=== PATIENT | female | born 1985 | race Two or more races ===

== ENCOUNTER 2017-06-09 10:47 | Emergency (ER) | payer OTHER ==
[2017-06-09 12:03] LABS: T.VAGINALIS (WET MOUNT) NO TRICHOMONAS SEEN; YEAST (WET MOUNT) NO YEAST SEEN
[2017-06-09 12:04] LABS: BACTERIA (WET MOUNT) 3+ BACTERIA SEEN; EPITHELIALS (WET MOUNT) 3+ EPITHELIALS SEEN; WBCS (WET MOUNT) NO WBCS SEEN
[2017-06-09 12:08] LABS: AMORPHOUS SEDIMENT,URINE TRACE /HPF; APPEARANCE,URINE CLOUDY; BILIRUBIN,URINE NEGATIVE (NEGATIVE); COLOR,URINE YELLOW; GLUCOSE, URINE NEGATIVE (NEGATIVE); KETONES,URINE NEGATIVE (NEGATIVE); LEUKOCYTE ESTERASE,URINE NEGATIVE (NEGATIVE); NITRITE,URINE NEGATIVE (NEGATIVE); PROTEIN,URINE NEGATIVE (NEGATIVE); URINE SPECIFIC GRAVITY 1.026
--- NOTE | 2017-06-09 12:40 | ER Document Report ---
HPI - HPI Patient complains to provider of: Urinary tract infection Onset: Other - Few days Onset/Duration: Gradual Pain Level: 3 Context: 31-year-old female with dysuria frequency and urgency for several days. She also thinks she might of bacterial vaginosis. No new sexual partner. Pelvic pain or flank pain. No fever or chills. No nausea vomiting or diarrhea. Associated Symptoms: None Exacerbated by: Denies Relieved by: Denies - ROS ROS below otherwise negative: Yes Systems Reviewed and Negative: Yes All other systems reviewed and negative - CONSTITUTIONAL Constitutional: DENIES: Fever, Chills - REPRODUCTIVE Reproductive: REPORTS: Abnormal bleeding / discharge - possible BV per pt. DENIES: : Past Medical History - General Information source: Patient - Social History Smoking Status: Never Smoker Chew tobacco use (# tins/day): No Frequency of alcohol use: Occasional Drug Abuse: None Lives with: Family Family History: Reviewed & Not Pertinent Patient has suicidal ideation: No Patient has homicidal ideation: No Renal/ Medical History: Reports: Other - UTI and bacterial vaginosis. Denies : Hx Peritoneal Dialysis Past Surgical History: Reports: Hx Dilation and Curettage, Hx Gynecologic Surgery - D&C 2010, Hx Oral Surgery - Immunizations Immunizations up to date: No Hx Diphtheria, Pertussis, Tetanus Vaccination: No Vertical Provider Document - CONSTITUTIONAL Agree With Documented VS: Yes Exam Limitations: No Limitations - INFECTION CONTROL TRAVEL OUTSIDE OF THE [place] IN LAST 30 DAYS: No - HEENT HEENT: Normocephalic - NECK Neck: Supple - RESPIRATORY Respiratory: Breath Sounds Normal, No Respiratory Distress O2 Sat by Pulse Oximetry: 96 - CARDIOVASCULAR Cardiovascular: Regular Rate, Regular Rhythm - GI/ABDOMEN Gastrointestinal: Abdomen Soft, Abdomen Non-Tender - MUSCULOSKELETAL/EXTREMETIES Musculoskeletal/Extremeties: MAEW - NEURO Level of Consciousness: Awake, Alert, Appropriate - DERM Integumentary: Warm, Dry Course - Re-evaluation Re-evalutation: 06/09/17 19:48 3+ bacteria 3+ epithelial cells which looks like to vaginosis, UA was sent for culture and I treated because of the symptoms but the UA does not look like a UTI. - Vital Signs Vital signs: Temp Pulse Resp BP Pulse Ox 98.8 F 81 14 113/60 96 06/09/17 10:57 06/09/17 10:57 06/09/17 10:57 06/09/17 10:57 06/09/17 10:57 - Laboratory Laboratory results interpreted by me: 06/09/17 11:42 Urine Urobilinogen 2.0 H Discharge - Discharge Clinical Impression: Bacterial vaginosis, Dysuria Condition: Good Disposition: HOME, SELF-CARE Instructions: Metronidazole ([facility]), Nitrofurantoin ([facility]), Urinary Tract Infection ([facility]), Vaginosis, Bacterial ([facility]) Additional Instructions: plenty of fluids to er if worse urine culture is pending no alcohol with the flagyl Prescriptions: Metronidazole [Flagyl 500 mg Tablet] 500 mg PO BID #14 tablet Nitrofurantoin/Nitrofuran Mac [Macrobid 100 mg Capsule] 100 mg PO BID #14 capsule Forms: Return to Work
[2017-06-09 12:47] VITALS: BP 120/70
== END 2017-06-09 13:02 | disposition home or self-care (01) ==
LOC: ER 10:47
DX: N76.0 Acute vaginitis (principal); B96.89 Other specified bacterial agents as the cause of diseases classified elsewhere; R30.0 Dysuria; R35.0 Frequency of micturition; R39.15 Urgency of urination; Z87.440 Personal history of urinary (tract) infections
CPT/HCPCS: 81001; 87086; 87210; 99283

== ENCOUNTER 2017-11-21 09:11 | Emergency (ER) | payer SELFPAY ==
--- NOTE | 2017-11-21 09:58 | ER Document Report ---
ED Medical Screen (RME) - General Chief Complaint: Vag Bleeding, +preg <12wks Stated Complaint: VAGINAL BLEEDING Time Seen by Provider: 11/21/17 09:49 Mode of Arrival: Ambulatory Information source: Patient Notes: This is a 31-year-old female 4 para 2 history of one miscarriage in the past, blood type a positive, approximately 8 weeks with reported twin pregnancies via ultrasound ([facility]). Patient states that she has been having some vaginal spotting for a few days with some cramping. She states that this morning at approximately 8 AM she had a heavy gush of blood. The bleeding has since stopped. She denies any significant pain. She denies any near-syncope. TRAVEL OUTSIDE OF THE [place] IN LAST 30 DAYS: No - Related Data Allergies/Adverse Reactions: No Known Allergies Allergy (Verified 11/21/17 09:19) Past Medical History Renal/ Medical History: Denies: Hx Peritoneal Dialysis Past Surgical History: Reports: Hx Dilation and Curettage, Hx Gynecologic Surgery - D&C 2010, Hx Oral Surgery - Immunizations Immunizations up to date: No Hx Diphtheria, Pertussis, Tetanus Vaccination: No Physical Exam - Vital signs Vitals: Temp Pulse Resp BP Pulse Ox 98.9 F 89 12 125/71 99 11/21/17 09:21 11/21/17 09:21 11/21/17 09:21 11/21/17 09:21 11/21/17 09:21 Course - Vital Signs Vital signs: Temp Pulse Resp BP Pulse Ox 98.9 F 89 12 125/71 99 11/21/17 09:21 11/21/17 09:21 11/21/17 09:21 11/21/17 09:21 11/21/17 09:21
[2017-11-21 10:39] LABS: ABSOLUTE EOSINOPHILS # (AUTO) 0.1 10^3/uL (0.0-0.6); ABSOLUTE LYMPHOCYTES (AUTO) 1.7 10^3/uL (0.5-4.7); ABSOLUTE MONOCYTES (AUTO) 0.4 10^3/uL (0.1-1.4); ABSOLUTE NEUT (AUTO) 2.9 10^3/uL (1.7-8.2); BASOPHILS % (AUTO) 0.5 % (0-2); EOSINOPHILS % (AUTO) 2.2 % (0-6); HEMATOCRIT 39.9 % (36.0-47.0); HEMOGLOBIN 13.6 g/dL (12.0-15.5); LYMPHOCYTES % (AUTO) 32.9 % (13-45); MEAN CORPUSCULAR HEMOGLOBIN 32.3 pg (27.0-33.4); MEAN CORPUSCULAR VOLUME 95 fl (80-97); MONOCYTES % (AUTO) 7.2 % (3-13); PLATELET COUNT 138 10^3/uL (150-450); RED BLOOD COUNT 4.21 10^6/uL (3.72-5.28); RED CELL DISTRIBUTION WIDTH 12.7 % (11.5-14.0); SEGMENTED NEUTROPHILS % (AUTO) 57.2 % (42-78); TOTAL CELLS COUNTED % (AUTO) 100 %; WHITE BLOOD COUNT 5.1 10^3/uL (4.0-10.5)
[2017-11-21 10:54] LABS: APPEARANCE,URINE CLEAR; BILIRUBIN,URINE NEGATIVE (NEGATIVE); COLOR,URINE YELLOW; GLUCOSE, URINE NEGATIVE (NEGATIVE); KETONES,URINE NEGATIVE (NEGATIVE); LEUKOCYTE ESTERASE,URINE NEGATIVE (NEGATIVE); NITRITE,URINE NEGATIVE (NEGATIVE); PROTEIN,URINE NEGATIVE (NEGATIVE); URINE SPECIFIC GRAVITY 1.028
--- NOTE | 2017-11-21 11:26 | RADIOLOGY REPORT (SQ) ---
EXAM DESCRIPTION: U/S OB TRANSVAGINAL W/O DOP COMPLETED DATE/TIME: 11/21/2017 10:55 am REASON FOR STUDY: approx 8 wekks/twins: vag bleed COMPARISON: 07/27/2000 TECHNIQUE: Transvaginal static and realtime grayscale images acquired of the pelvis. Additional nikki cted spectral and color Doppler images recorded. All images stored on PACs. bHCG: Not available. LIMITATIONS: None. FINDINGS: FETUS: Living intrauterine . ULTRASOUND EGA: 6 weeks 5 days ULTRASOUND KATT: 07/13/2007 CRL: 0.8 cm FHR: 108 beats per minute. SUBCHORIONIC BLEED: No SIZE OF BLEED: Not applicable. GESTATIONAL SAC: Gestational sac has an abnormal, teardrop-like configuration with less amniotic flu id than what is expected, subjectively. YOLK SAC: 8 mm. UTERUS: No masses. No anomalies. Measures 8.6 x 5.8 x 6.3 cm CERVICAL LENGTH: 3.0 cm Closed. RIGHT ADNEXA: Ovary not identified. LEFT ADNEXA: Ovary not identified. FREE FLUID: None. OTHER: No other significant finding. IMPRESSION: LIVING INTRAUTERINE . Abnormal shape of the gestational sac with a slightly en larged yolk sac and subjectively decreased amount of amniotic fluid than what is expected. Findings are concerning for demise. Recommend correlation with serial beta hCGs and short-term sonogra phic follow-up. EGA 6 weeks 5 days Trimester of : First - 0 to 13 weeks. TECHNICAL DOCUMENTATION: JOB ID: [id number] [employer]- All Rights Reserved Reading location - IP/workstation name: [email or web address]
--- NOTE | 2017-11-21 12:15 | ER Document Report ---
ED General - General Chief Complaint: Vag Bleeding, +preg <12wks Stated Complaint: VAGINAL BLEEDING Time Seen by Provider: 11/21/17 09:49 Mode of Arrival: Ambulatory TRAVEL OUTSIDE OF THE [place] IN LAST 30 DAYS: No - HPI Patient complains to provider of: Vaginal bleeding positive . Notes: Patient coming in with vaginal bleeding. Patient states that she has been evaluated by the center told she has twin states last ultrasound showed on the twins was treated irregularly more likely would be miscarried or as ordered by the other twin. Patient states having bright red blood out of her vagina today after having intercourse came to the ER for further evaluation. Patient otherwise is resting comfortably upon my evaluation. Denies any headaches denies any abdominal pain denies any dizziness. - Related Data Allergies/Adverse Reactions: No Known Allergies Allergy (Verified 11/21/17 09:19) Past Medical History - General Information source: Patient - Social History Smoking Status: Never Smoker Frequency of alcohol use: None Drug Abuse: None Family History: Reviewed & Not Pertinent Patient has suicidal ideation: No Patient has homicidal ideation: No Renal/ Medical History: Denies: Hx Peritoneal Dialysis Past Surgical History: Reports: Hx Dilation and Curettage, Hx Gynecologic Surgery - D&C 2010, Hx Oral Surgery - Immunizations Immunizations up to date: No Hx Diphtheria, Pertussis, Tetanus Vaccination: No Review of Systems - Review of Systems Constitutional: No symptoms reported EENT: No symptoms reported Cardiovascular: No symptoms reported Respiratory: No symptoms reported Gastrointestinal: No symptoms reported Genitourinary: No symptoms reported Female Genitourinary: Vaginal bleeding Musculoskeletal: No symptoms reported Skin: No symptoms reported Hematologic/Lymphatic: No symptoms reported Neurological/Psychological: No symptoms reported -: Yes All other systems reviewed and negative Physical Exam - Vital signs Vitals: Temp Pulse Resp BP Pulse Ox 98.9 F 89 12 125/71 99 11/21/17 09:21 11/21/17 09:21 11/21/17 09:21 11/21/17 09:21 11/21/17 09:21 Interpretation: Normal - General General appearance: Appears well, Alert - HEENT Head: Normocephalic, Atraumatic Eyes: Normal Pupils: PERRL - Respiratory Respiratory status: No respiratory distress Chest status: Nontender Breath sounds: Normal Chest palpation: Normal - Cardiovascular Rhythm: Regular Heart sounds: Normal auscultation Murmur: No - Abdominal Inspection: Normal Distension: No distension Bowel sounds: Normal Tenderness: Nontender Organomegaly: No organomegaly - Back Back: Normal, Nontender - Extremities General upper extremity: Normal inspection, Nontender, Normal color, Normal ROM , Normal temperature General lower extremity: Normal inspection, Nontender, Normal color, Normal ROM , Normal temperature, Normal weight bearing. No: Evin's sign - Neurological Neuro grossly intact: Yes Cognition: Normal Orientation: AAOx4 [place] Coma Scale Eye Opening: Spontaneous Madi Coma Scale Verbal: Oriented [place] Coma Scale Motor: Obeys Commands [place] Coma Scale Total: 15 Speech: Normal Motor strength normal: LUE, RUE, LLE, RLE Sensory: Normal - Psychological Associated symptoms: Normal affect, Normal mood - Skin Skin Temperature: Warm Skin Moisture: Dry Skin Color: Normal Course - Re-evaluation Re-evalutation: 11/21/17 15:35 Patient coming in for vaginal bleeding. Ultrasound shows 1 IUP with a misshapened gestational sac concerning for possible early demise. They relayed this to the patient that more likely she miscarried 1 of the twins and that there is a good chance that she may miscarry the second 1 I did contact OB/ COMMUNITY DEVELOPMENT SPECIALIST telephone answerer Dr. Damon who recommended follow-up in the clinic in approximately 1 weeks. Patient is to return to the ER if any symptoms worsen. Patient will be discharged home. - Vital Signs Vital signs: Temp Pulse Resp BP Pulse Ox 98.6 F 72 16 116/43 L 99 11/21/17 12:24 11/21/17 12:24 11/21/17 12:24 11/21/17 12:24 11/21/17 12:24 - Laboratory Result Diagrams: 11/21/17 10:10 Laboratory results interpreted by me: 11/21/17 11/21/17 11/21/17 10:10 10:10 10:10 Plt Count 138 L Beta HCG, Quant 01984.00 H Urine Blood MODERATE H Urine Urobilinogen 2.0 H Discharge - Discharge Clinical Impression: Threatened miscarriage in early Condition: Good Disposition: HOME, SELF-CARE Instructions: Threatened Miscarriage ([facility]) Additional Instructions: Your ultrasound today only shows 1 fetus within the uterus. More likely you have miscarried 1 of the twins. The yolk sac today other remaining fetus does look slightly abnormal which came in that she may end up miscarrying this fetus as well. I discussed her case with the [facility] on-call would recommend at this time pelvic rest nothing inside the vagina under section of choice to tampons. Continue with your vitamins. Follow-up with the [facility] clinic call them on Thursday to schedule follow-up appointment. Return to the ER for any concerning symptoms. Forms: Restricted Release Referrals: DEMARCUS HOWARD MD [ACTIVE STAFF] - Follow up as needed
[2017-11-21 12:26] VITALS: BP 116/43
== END 2017-11-21 12:26 | disposition home or self-care (01) ==
LOC: ER 09:11
DX: O20.0 Threatened abortion (principal); Z3A.00 Weeks of gestation of pregnancy not specified
CPT/HCPCS: 36415; 76817; 81001; 84702; 85025; 99284

== ENCOUNTER 2017-11-24 13:48 | Emergency (ER) | payer SELFPAY ==
--- NOTE | 2017-11-24 14:53 | ER Document Report ---
ED General - General Chief Complaint: Vaginal Bleeding Stated Complaint: VAGINAL BLEEDING Time Seen by Provider: 11/24/17 14:39 Mode of Arrival: Ambulatory Information source: Patient Notes: Patient presents emergency department with possible miscarriage. . Patient reports she was evaluated here in the emergency department approximately 3 days ago on Thursday. She reports she had a transvaginal ultrasound. She reports she was told that she had twins but the second twin barely had a heartbeat and she was probably having a miscarriage. She did have a follow up visit with the health department but no testing was completed. She reports she has had brown discharge for a few couple weeks. This morning she had dark black discharge. Afterwards she had a little spotting but it is tapering off very little. She reports she has not had to wear a liner but she probably should have. She denies fever vomiting diarrhea. She reports she feels like it is cramping but declines pain medication. TRAVEL OUTSIDE OF THE [place] IN LAST 30 DAYS: No - HPI Onset: Other Onset/Duration: Persistent Quality of pain: Cramping Pain Level: 3 Associated symptoms: None Exacerbated by: Denies Relieved by: Denies Similar symptoms previously: Yes Recently seen / treated by doctor: Yes - Related Data Allergies/Adverse Reactions: No Known Allergies Allergy (Verified 11/24/17 15:17) Past Medical History - General Information source: Patient Last Menstrual Period: september. ~6.5 weeks - Social History Smoking Status: Never Smoker Chew tobacco use (# tins/day): No Frequency of alcohol use: None Drug Abuse: None Lives with: Family Family History: Reviewed & Not Pertinent Patient has suicidal ideation: No Patient has homicidal ideation: No - Medical History Medical History: Negative Renal/ Medical History: Denies: Hx Peritoneal Dialysis Past Surgical History: Reports: Hx Dilation and Curettage, Hx Gynecologic Surgery - D&C 2010, Hx Oral Surgery - Immunizations Immunizations up to date: No Hx Diphtheria, Pertussis, Tetanus Vaccination: No Review of Systems - Review of Systems Notes: Review HPI for review of systems., All other systems negative Physical Exam - Vital signs Vitals: Temp Pulse Resp BP Pulse Ox 98.8 F 84 14 127/64 H 100 11/24/17 13:56 11/24/17 13:56 11/24/17 13:56 11/24/17 13:56 11/24/17 13:56 - Notes Notes: PHYSICAL EXAMINATION: GENERAL: Well-appearing and in no acute distress HEAD: Atraumatic, normocephalic. EYES: extraocular movements intact, sclera anicteric, conjunctiva are normal. ENT: nares patent, Moist mucous membranes. NECK: Normal range of motion, supple without lymphadenopathy LUNGS: CTAB and equal. No wheezes rales or rhonchi. HEART: Regular rate and rhythm without murmurs ABDOMEN: Soft, no tenderness with palpation. No guarding, no rebound EXTREMITIES: Normal range of motion, No cyanosis. NEUROLOGICAL: Cranial nerves grossly intact. Normal sensory/motor exams. PSYCH: Normal mood, normal affect. SKIN: Warm, Dry, normal turgor, no rashes or lesions noted Course - Re-evaluation Re-evalutation: 11/24/17 14:53 Patient instructed on plan of care to include labs hCG and ultrasound. 11/24/17 18:58 BHCG increased from the 18th. TVUS showed intrauterine 6 weeks 6 days with a heart rate of 133. Patient was instructed on all results. Patient reports no further bleeding. She was Instructed follow-up hCG on and to contact myself for results. Patient was also instructed to return for any pain vaginal bleeding concerns. She verbalized understanding. Denies pain at this time. - Vital Signs Vital signs: Temp Pulse Resp BP Pulse Ox 98.5 F 80 16 125/60 100 11/24/17 18:35 11/24/17 18:35 11/24/17 18:35 11/24/17 18:35 11/24/17 18:35 - Laboratory Result Diagrams: 11/24/17 14:48 Laboratory results interpreted by me: 11/24/17 11/24/17 14:48 14:48 Plt Count 141 L Beta HCG, Quant 55679.00 H - Diagnostic Test Radiology reviewed: Reports reviewed - EXAM DESCRIPTION: U/S OB TRANSVAG W/ DOPPLER COMPLETED DATE/TIME: 11/24/2017 5:56 pm REASON FOR STUDY: vag bleeding+preg COMPARISON: None. TECHNIQUE: Transvaginal static and realtime grayscale images acquired of the pelvis. Additional selected spectral and color Doppler images recorded. All images stored on PACs. [id number] CLINICAL DATES: LMP 09/29/2017 8 weeks 0 days LIMITATIONS: None. FINDINGS: FETUS: Living intrauterine . ULTRASOUND EGA: 6 weeks 6 days ULTRASOUND KATT: 07/14/2018 CRL: 0.83 cm FHR: 133 beats per minute. SUBCHORIONIC BLEED: Yes SIZE OF BLEED: Small UTERUS: No masses or anomalies. CERVICAL LENGTH: 3.1 cm. Closed. RIGHT ADNEXA: Ovary not seen. No adnexal free fluid. No adnexal masses. LEFT ADNEXA: Ovary not seen. No adnexal free fluid. No adnexal masses. FREE FLUID: None. OTHER: No other significant finding. IMPRESSION: LIVING INTRAUTERINE . EGA 6 weeks 6 days Trimester of : First - 0 to 13 weeks. Discharge - Discharge Clinical Impression: Vaginal bleeding Qualifiers: Weeks of gestation: less than 8 weeks Qualified Code(s): Z3A.01 - Less than 8 weeks gestation of Condition: Stable Disposition: HOME, SELF-CARE Instructions: Bleeding During Early ([facility]), Ob-Digital Product Manager Doctors Additional Instructions: *You have been evaluated for Vaginal bleeding, *Your BHCG today was 96651. Follow up on for a repeat BHCG. Call Pat at [phone] for your results two hours after the test *Your ultrasound today showed a living intrauterine 6 weeks 6 days with a heart rate of 133 bpm. *Follow up with an RADIO MECHANIC or the health department within 1 week. *Return to ED for worsening condition, changes, needs, vaginal bleeding pain fever *Return to ED if not better in 24 hours Forms: Follow-Up Laboratory Testing
[2017-11-24 15:06] LABS: ABSOLUTE EOSINOPHILS # (AUTO) 0.1 10^3/uL (0.0-0.6); ABSOLUTE LYMPHOCYTES (AUTO) 1.7 10^3/uL (0.5-4.7); ABSOLUTE MONOCYTES (AUTO) 0.4 10^3/uL (0.1-1.4); ABSOLUTE NEUT (AUTO) 3.6 10^3/uL (1.7-8.2); BASOPHILS % (AUTO) 0.5 % (0-2); EOSINOPHILS % (AUTO) 1.6 % (0-6); HEMATOCRIT 39.7 % (36.0-47.0); HEMOGLOBIN 13.6 g/dL (12.0-15.5); LYMPHOCYTES % (AUTO) 29.7 % (13-45); MEAN CORPUSCULAR HEMOGLOBIN 32.8 pg (27.0-33.4); MEAN CORPUSCULAR HGB CONC 34.3 g/dL (32.0-36.0); MEAN CORPUSCULAR VOLUME 96 fl (80-97); MONOCYTES % (AUTO) 7.5 % (3-13); PLATELET COUNT 141 10^3/uL (150-450); RED BLOOD COUNT 4.15 10^6/uL (3.72-5.28); RED CELL DISTRIBUTION WIDTH 12.5 % (11.5-14.0); SEGMENTED NEUTROPHILS % (AUTO) 60.7 % (42-78); TOTAL CELLS COUNTED % (AUTO) 100 %; WHITE BLOOD COUNT 5.9 10^3/uL (4.0-10.5)
[2017-11-24] MEDS ORDERED: ACETAMINOPHEN 325 MG TABLET PO ONE (16:50)
--- NOTE | 2017-11-24 18:08 | RADIOLOGY REPORT (SQ) ---
EXAM DESCRIPTION: U/S OB TRANSVAG W/DOPPLER COMPLETED DATE/TIME: 11/24/2017 5:56 pm REASON FOR STUDY: vag bleeding+preg COMPARISON: None. TECHNIQUE: Transvaginal static and realtime grayscale images acquired of the pelvis. Additional nikki cted spectral and color Doppler images recorded. All images stored on PACs. [id number] CLINICAL DATES: LMP 09/29/2017 8 weeks 0 days LIMITATIONS: None. FINDINGS: FETUS: Living intrauterine . ULTRASOUND EGA: 6 weeks 6 days ULTRASOUND KATT: 07/14/2018 CRL: 0.83 cm FHR: 133 beats per minute. SUBCHORIONIC BLEED: Yes SIZE OF BLEED: Small UTERUS: No masses or anomalies. CERVICAL LENGTH: 3.1 cm. Closed. RIGHT ADNEXA: Ovary not seen. No adnexal free fluid. No adnexal masses. LEFT ADNEXA: Ovary not seen. No adnexal free fluid. No adnexal masses. FREE FLUID: None. OTHER: No other significant finding. IMPRESSION: LIVING INTRAUTERINE . EGA 6 weeks 6 days Trimester of : First - 0 to 13 weeks. TECHNICAL DOCUMENTATION: JOB ID: [id number] [employer]- All Rights Reserved rev Reading location - IP/workstation name: [email or web address]
[2017-11-24 18:36] VITALS: BP 125/60
== END 2017-11-24 18:36 | disposition home or self-care (01) ==
LOC: ER 13:48
DX: O46.91 Antepartum hemorrhage, unspecified, first trimester (principal); Z3A.00 Weeks of gestation of pregnancy not specified
CPT/HCPCS: 36415; 76817; 84702; 85025; 93976; 99284

== ENCOUNTER 2017-12-10 17:18 | Emergency (ER) | payer MEDICAID ==
[2017-12-10] MEDS ORDERED: OXYCODONE-ACETAMINOPHEN 5-325 MG TABLET PO ONE (17:45)
[2017-12-10] MEDS ORDERED: PROMETHAZINE HCL 25 MG TABLET PO ONE (17:45)
--- NOTE | 2017-12-10 17:50 | ER Document Report ---
ED Medical Screen (RME) - General Chief Complaint: Vag Bleeding, +preg <12wks Stated Complaint: VAGINAL BLEEDING/CRAMPING Time Seen by Provider: 12/10/17 17:45 Notes: Patient is here because she thinks she is having a miscarriage. Patient was with twins until here on November 21 and she aborted 1 of the twins. She has been stable since then until this morning when she awakened with cramping and then later seeing vaginal bleeding. She is approximately 10 weeks , this being her fourth . TRAVEL OUTSIDE OF THE [place] IN LAST 30 DAYS: No - Related Data Allergies/Adverse Reactions: No Known Allergies Allergy (Verified 12/10/17 17:23) Past Medical History - General Last Menstrual Period: 09/27/17 - Social History Frequency of alcohol use: None Drug Abuse: None Renal/ Medical History: Denies: Hx Peritoneal Dialysis Past Surgical History: Reports: Hx Dilation and Curettage, Hx Gynecologic Surgery - D&C 2010, Hx Oral Surgery - Immunizations Immunizations up to date: No Hx Diphtheria, Pertussis, Tetanus Vaccination: No Physical Exam - Vital signs Vitals: Temp Pulse Resp BP Pulse Ox 97.5 F 93 20 141/74 H 99 12/10/17 17:24 12/10/17 17:24 12/10/17 17:24 12/10/17 17:24 12/10/17 17:24 Course - Vital Signs Vital signs: Temp Pulse Resp BP Pulse Ox 97.5 F 93 20 141/74 H 99 12/10/17 17:24 12/10/17 17:24 12/10/17 17:24 12/10/17 17:24 12/10/17 17:24 Doctor's Discharge - Discharge Referrals: ENEDINA RUDOLPH, PRODUCT SUPPORT ANALYST [Primary Care Provider] - Follow up as needed
[2017-12-10 18:26] LABS: ABSOLUTE EOSINOPHILS # (AUTO) 0.1 10^3/uL (0.0-0.6); ABSOLUTE LYMPHOCYTES (AUTO) 1.9 10^3/uL (0.5-4.7); ABSOLUTE MONOCYTES (AUTO) 0.6 10^3/uL (0.1-1.4); BASOPHILS % (AUTO) 0.3 % (0-2); EOSINOPHILS % (AUTO) 1.6 % (0-6); HEMOGLOBIN 13.4 g/dL (12.0-15.5); LYMPHOCYTES % (AUTO) 22.1 % (13-45); MEAN CORPUSCULAR HEMOGLOBIN 32.8 pg (27.0-33.4); MEAN CORPUSCULAR HGB CONC 34.3 g/dL (32.0-36.0); MEAN CORPUSCULAR VOLUME 96 fl (80-97); MONOCYTES % (AUTO) 6.6 % (3-13); PLATELET COUNT 139 10^3/uL (150-450); RED BLOOD COUNT 4.08 10^6/uL (3.72-5.28); RED CELL DISTRIBUTION WIDTH 12.9 % (11.5-14.0); SEGMENTED NEUTROPHILS % (AUTO) 69.4 % (42-78); TOTAL CELLS COUNTED % (AUTO) 100 %; WHITE BLOOD COUNT 8.6 10^3/uL (4.0-10.5)
[2017-12-10 18:35] LABS: INTERNATIONAL RATION (INR) 0.91; PROTHROMBIN TIME 12.7 SEC (11.4-15.4)
[2017-12-10 18:36] LABS: PARTIAL THROMBOPLASTIN TIME 29.2 SEC (23.5-35.8)
--- NOTE | 2017-12-10 20:10 | ER Document Report ---
ED GI/ - General Chief Complaint: Vag Bleeding, +preg <12wks Stated Complaint: VAGINAL BLEEDING/CRAMPING Time Seen by Provider: 12/10/17 17:45 Notes: Patient is a 31-year-old female presenting to the emergency department complaining of vaginal bleeding and cramping. Patient states she was here on and 11/24/2017 for same. Patient states she was with twins at one-point, miscarried one twin on her previous visit and was to follow-up with the health department. Patient states she cannot get into the health department and has had a scant amount of bleeding since. Patient stated this afternoon she started passing tissue and the lower abdominal cramping increased so she presented to the emergency department. Last menstrual period September 27, 2017, A2. Patient denies smoking, EtOH use, illicit drug use. Past medical history of "I cannot clots." Patient states she takes no medications on a daily basis, has no known drug allergies, has had a D&C for previous miscarriage. TRAVEL OUTSIDE OF THE [place] IN LAST 30 DAYS: No - Related Data Allergies/Adverse Reactions: No Known Allergies Allergy (Verified 12/10/17 17:23) Past Medical History - General Information source: Patient Last Menstrual Period: 09/27/17 - Social History Smoking Status: Never Smoker Frequency of alcohol use: None Drug Abuse: None Lives with: Family Family History: Reviewed & Not Pertinent Patient has suicidal ideation: No Patient has homicidal ideation: No Renal/ Medical History: Denies: Hx Peritoneal Dialysis Past Surgical History: Reports: Hx Dilation and Curettage, Hx Gynecologic Surgery - D&C 2010, Hx Oral Surgery - Immunizations Immunizations up to date: No Hx Diphtheria, Pertussis, Tetanus Vaccination: No Review of Systems - Review of Systems Constitutional: No symptoms reported EENT: No symptoms reported Cardiovascular: No symptoms reported Respiratory: No symptoms reported Gastrointestinal: No symptoms reported, See HPI Genitourinary: No symptoms reported Female Genitourinary: See HPI Musculoskeletal: No symptoms reported Skin: No symptoms reported Hematologic/Lymphatic: See HPI Neurological/Psychological: No symptoms reported Physical Exam - Vital signs Vitals: Temp Pulse Resp BP Pulse Ox 97.5 F 93 20 141/74 H 99 12/10/17 17:24 12/10/17 17:24 12/10/17 17:24 12/10/17 17:24 12/10/17 17:24 - Notes Notes: GENERAL: Alert, interacts well. No acute distress. HEAD: Normocephalic, atraumatic. EYES: Pupils equal, round, and reactive to light. Extraocular movements intact. ENT: Oral mucosa moist, tongue midline. NECK: Full range of motion. Supple. Trachea midline. LUNGS: Clear to auscultation bilaterally, no wheezes, rales, or rhonchi. No respiratory distress. HEART: Regular rate and rhythm. No murmur ABDOMEN: Soft, mild discomfort suprapubic area. Non-distended. Bowel sounds present in all 4 quadrants. EXTREMITIES: Moves all 4 extremities spontaneously. No edema, normal radial and dorsalis pedis pulses bilaterally. No cyanosis. BACK: no cervical, thoracic, lumbar midline tenderness. No saddle anesthesia, normal distal neurovascular exam. NEUROLOGICAL: Alert and oriented x3. Normal speech. . PSYCH: Normal affect, normal mood. SKIN: Warm, dry, normal turgor. No rashes or lesions noted. Course - Re-evaluation Re-evalutation: Reviewed patient's lab results, ultrasound, hCG levels. Talked to the patient about doing a pelvic to look for POC, patient agrees. Bright red blood seen in the cul-de-sac, observed with gauze. No POC in os. Talked to patient about importance of following up with the health department, EVENT SERVICES MANAGER for repeat hCG levels. Return precautions given. - Vital Signs Vital signs: Temp Pulse Resp BP Pulse Ox 98.1 F 74 14 118/69 98 12/10/17 21:37 12/10/17 21:37 12/10/17 21:37 12/10/17 21:37 12/10/17 21:37 - Laboratory Result Diagrams: 12/10/17 18:04 Laboratory results interpreted by me: 12/10/17 12/10/17 18:04 18:04 Plt Count 139 L Beta HCG, Quant 5175.30 H Procedures - Pelvic Exam Pelvic exam Cultures obtained: No Wet prep obtained: No Herpes culture obtained: No POC sent to lab: No Foreign body removed: No Bimanual exam performed: No Discharge - Discharge Clinical Impression: Vaginal bleeding, Miscarriage Condition: Stable Disposition: HOME, SELF-CARE Additional Instructions: You have been seen in the emergency department for vaginal bleeding. According to the lab results and ultrasound it appears that you have had a miscarriage. As we talked about it is important that you follow-up with the health department or EVENT SERVICES MANAGER to get repeat hCG levels. Return to the emergency department should you have any lightheadedness, weakness, increased vaginal bleeding, shortness of breath, or pass out. Take medications as prescribed. Referrals: ENEDINA RUDOLPH APRN [NO LOCAL MD] - Follow up as needed ANASTACIA CARPIO MD [ACTIVE STAFF] - Follow up as needed
--- NOTE | 2017-12-10 20:21 | RADIOLOGY REPORT (SQ) ---
EXAM DESCRIPTION: U/S OB TRANSVAG W/DOPPLER COMPLETED DATE/TIME: 12/10/2017 8:06 pm REASON FOR STUDY: Previously preg with twins, aborted 1, now bleeding COMPARISON: 11/24/2017 TECHNIQUE: Transvaginal static and realtime grayscale images acquired of the pelvis. Additional nikki cted spectral and color Doppler images recorded. All images stored on PACs. bHCG: Not available CLINICAL DATES: LMP 09/29/2017. 10 weeks 2 days. LIMITATIONS: None. FINDINGS: No intrauterine gestation is seen. The uterus is unremarkable. Ovaries were not seen. IMPRESSION: No intrauterine gestation at this time. TECHNICAL DOCUMENTATION: JOB ID: [id number] [employer]- All Rights Reserved rev-08/21 Reading location - IP/workstation name: [email or web address]
[2017-12-10] MEDS ORDERED: ONDANSETRON ODT 4 MG TAB (6 TAB/ER DISP) PO PRN (21:24)
[2017-12-10] MEDS ORDERED: HYDROCODONE/ACETAMINOPHEN 5-325 MG (6 TAB/ER DISP) PO PRN (21:24)
[2017-12-10 23:10] VITALS: BP 118/69
== END 2017-12-10 21:45 | disposition home or self-care (01) ==
LOC: ER 17:18
DX: O03.9 Complete or unspecified spontaneous abortion without complication (principal)
CPT/HCPCS: 99284; 86900; 86901; 36415; 84702; 85025; 85610; 85730; 76817; 93976; J3490

== ENCOUNTER 2019-07-19 11:26 | Emergency (ER) | payer BC, MEDICAID ==
--- NOTE | 2019-07-19 11:28 | ER Document Report ---
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 She reports last night she became short of breath. Reports fever with nausea and vomiting. Patient also reports decreased sense of smell with decreased appetite. Patient also reports that she is possibly , she took a test and it was faintly positive. She reports she lives on the third floor and by the time she finished climbing steps she was really short of breath. Patient denies vomiting today. Declines antinausea medicine. Associated Symptoms: Fever, Nausea, Vomiting, Shortness of breath. 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 Lives with: Family Family History: Reviewed & Not Pertinent Patient has suicidal ideation: No Patient has homicidal ideation: No - Medical History Medical History: Negative Renal/ Medical History: Denies: Hx Peritoneal Dialysis Past Surgical History: Reports: Hx Dilation and Curettage, Hx Gynecologic S urgery - D&C 2010, Hx Oral Surgery - Immunizations Immunizations up to date: No Hx Diphtheria, Pertussis, Tetanus Vaccination: No Vertical Provider Document - CONSTITUTIONAL Agree With Documented VS: Yes Exam Limitations: No Limitations General Appearance: WD/WN, No Apparent Distress - nontoxic looking Notes: Full physical exam could not be performed due to Covidien 19 isolation protocols. Constitutional: nontoxic appearance, no acute distress Eyes: Nonicteric, extraocular movements intact, sclera clear Respiratory: Nonlabored breathing, no use of accessory muscles, no tachypnea, RR even/unlabored Cardiovascular: No JVD Gastrointestinal: Abdominal not distended Musculoskeletal: Moves all extremities well Skin: Normal color Neuro: Awake alert oriented normal speech Psych: Normal mood and affect - INFECTION CONTROL TRAVEL OUTSIDE OF THE [place] IN LAST 30 DAYS: No - HEENT HEENT: Atraumatic, Normocephalic. negative: Conjuctival Injection, Pharyngeal Exudate, Pharyngeal Erythema - NECK Neck: Supple - RESPIRATORY Respiratory: Breath Sounds Normal, No Respiratory Distress - No shortness of breath speaking in a clear voice respiratory rate even unlabored - NEURO Level of Consciousness: Awake, Alert, Appropriate - DERM Integumentary: Warm, Dry Course - Re-evaluation Re-evalutation: 07/19/19 12:09 Patient presents with upper respiratory symptoms worrisome for possible Covid 19 due. 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 Patient does not have emergency worriesome symptoms such as difficulty breathing, chest pain, pressure, confusion or cyanosis. Patient does complain of shortness of breath but is talking in a clear voice no shortness of breath at this time. Patient appears suitable for discharge as they are not of an advanced age, do not have any chronic medical conditions such as diabetes, CAD, immune deficiency, chronic lung disease or chronic kidney disease. Patient's vital signs are stable and patient is nontoxic in appearance. Good return precautions have been discussed with patient, patient verbalized understanding and is agreeable with discharge plan of care at this time. Strep flu and Covid testing will be done on this patient. She was instructed on self quarantine. 07/19/19 13:35 Laboratory 07/19/19 07/19/19 12:00 12:02 Influenza A (Rapid) NEGATIVE Influenza B (Rapid) NEGATIVE Group A Strep Rapid NEGATIVE Influenza and strep negative. Throat culture pending. COVID 19 testing pending. Patient notified via Maureen SHER. - Vital Signs Vital signs: 07/19/19 13:03 heart Rate 93, blood pressure 117/60, 98%, 97.3 Discharge - Discharge Clinical Impression: Exposure to COVID-19 virus, Shortness of breath Nausea & vomiting Qualifiers: Vomiting type: unspecified Vomiting Intractability: unspecified Qualified Code(s): R11.2 - Nausea with vomiting, unspecified Condition: Stable Disposition: HOME, SELF-CARE Instructions: Vomiting (OM) Additional Instructions: *You have been evaluated for fever, nausea and vomiting, shortness of breath, COVID exposure *A strep and influenza test are pending. You will be contacted today with those results. If the strep test is negative a throat culture will be pending. You may be contacted in 3 to 4 days with those results. If they are positive a prescription will be called into your pharmacy. * A COVID-19 test is also pending. You may be contacted within the next 10 days with those results. In the meantime you are required to self quarantine yourself. *Monitor your temperature, give Tylenol as indicated *Ensure you drink plenty of fluids to stay well hydrated *Maintain handwashing, social distancing *Follow up with your provider as indicated *Return to the emergency department for worsening conditions difficulty breathing concerns. As a person under investigation for Covid 19, the [facility] of Health and Human Services, division of public health advises you to adhere to the following guidance until your test results are reported to you. If your test result is positive, you will receive additional information from your provider and your local health department at that time. Remain at home until you are cleared by the health provider or public health authorities. Keep a log of visitors to your home, notify any visitors to your home of your isolation status. If you plan to move to a new address or leave the county, notify the local health department in your County. Call your doctor or seek care if you have an urgent medical need. Before seeking medical care, call ahead to get instructions from the provider before arriving at the medical office clinic or hospital. Notify them that you are being tested for the virus that causes Covid 19 so that arrangements can be made, as necessary, to prevent transmission to others in the healthcare setting. Next, notify the local health department in your county. If a medical emergency arises and you need to call 911, inform dispatch and the first responders that you are being tested for the virus that causes Covid 19. Next, notify the local health department in your county. Guidance for worsening S/SX: For worsening symptoms, patient has been advised to contact their Primary Care Provider, or go to the nearest Emergency Department. Referrals: HEALTH,EMPLOYEE [ACTIVE STAFF] - Follow up as needed
[2019-07-19 13:08] LABS: A TYPE INFLUENZA AG NEGATIVE (NEGATIVE); B INFLUENZA AG NEGATIVE (NEGATIVE)
== END 2019-07-19 15:49 | disposition home or self-care (01) ==
LOC: EDRDC 11:26
DX: R06.02 Shortness of breath (principal); R50.9 Fever, unspecified; R11.2 Nausea with vomiting, unspecified; Z20.828 Contact with and (suspected) exposure to other viral communicable diseases
CPT/HCPCS: 87070; 87635; 87804; 87880; 99211

== ENCOUNTER 2019-07-25 19:57 | Emergency (ER) | payer BC, MEDICAID ==
[2019-07-25] MEDS ORDERED: NORMAL SALINE 1000 ML 1,000 ML IV ONE (20:16)
--- NOTE | 2019-07-25 20:18 | ER Document Report ---
ED Medical Screen (RME) - General Chief Complaint: Urinary Problem Stated Complaint: SIDE PAINS AND NAUSEA 3 WKS PREG Time Seen by Provider: 07/25/19 20:15 Primary Care Provider: LANIE OWENS [Primary Care Provider] - Follow up as needed Notes: HPI: 33-year-old female who believes she is approximately 3 weeks presenting for nausea vomiting over the last 3 to 4 days with some right pelvic pain and vaginal discomfort. Reports discomfort with urination over the last 3 to 4 days as well. States she has seen some white flecks in the urine, denies vaginal discharge or bleeding. Patient is on fertility treatments and only found out that she was today. Last menstrual cycle was June 30. 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 She has no cough or shortness of breath. She has otherwise not been around other individuals since the COVID test was negative I have greeted and performed a rapid initial assessment of this patient. A comprehensive ED assessment and evaluation of the patient, analysis of test results and completion of the medical decision making process will be conducted by additional ED providers PHYSICAL EXAMINATION: There is mild tenderness in the right pelvis on palpation. No CVA tenderness. No upper abdominal pain on palpation I have greeted and performed a rapid initial assessment of this patient. A comprehensive ED assessment and evaluation of the patient, analysis of test results and completion of medical decision making process will be conducted by an additional ED providers. TRAVEL OUTSIDE OF THE [place] IN LAST 30 DAYS: No - Related Data Allergies/Adverse Reactions: No Known Allergies Allergy (Verified 12/10/17 17:23) Home Medications: Progesterone Past Medical History - Social History Frequency of alcohol use: None Drug Abuse: None Renal/ Medical History: Denies: Hx Peritoneal Dialysis Past Surgical History: Reports: Hx Dilation and Curettage, Hx Gynecologic Surgery - D&C 2010, Hx Oral Surgery - Immunizations Immunizations up to date: No Hx Diphtheria, Pertussis, Tetanus Vaccination: No Physical Exam - Vital signs Vitals: Temp Pulse Resp BP Pulse Ox 98.9 F 97 16 131/83 H 95 07/25/19 20:01 07/25/19 20:01 07/25/19 20:01 07/25/19 20:01 07/25/19 20:01 Course - Vital Signs Vital signs: Temp Pulse Resp BP Pulse Ox 98.9 F 97 16 131/83 H 95 07/25/19 20:01 07/25/19 20:01 07/25/19 20:01 07/25/19 20:01 07/25/19 20:01 Doctor's Discharge - Discharge Referrals: LOCALMD,NO [Primary Care Provider] - Follow up as needed
[2019-07-25 20:45] LABS: APPEARANCE,URINE SLIGHTLY-CLOUDY; BILIRUBIN,URINE NEGATIVE (NEGATIVE); COLOR,URINE YELLOW; GLUCOSE, URINE NEGATIVE (NEGATIVE); KETONES,URINE NEGATIVE (NEGATIVE); LEUKOCYTE ESTERASE,URINE NEGATIVE (NEGATIVE); NITRITE,URINE NEGATIVE (NEGATIVE); PROTEIN,URINE NEGATIVE (NEGATIVE); URINE SPECIFIC GRAVITY 1.018
[2019-07-25 20:46] LABS: ABSOLUTE LYMPHOCYTES (AUTO) 1.2 10^3/uL (0.5-4.7); ABSOLUTE MONOCYTES (AUTO) 0.5 10^3/uL (0.1-1.4); ABSOLUTE NEUT (AUTO) 1.7 10^3/uL (1.7-8.2); BASOPHILS % (AUTO) 0.7 % (0-2); EOSINOPHILS % (AUTO) 0.9 % (0-6); HEMATOCRIT 40.5 % (36.0-47.0); HEMOGLOBIN 14.3 g/dL (12.0-15.5); LYMPHOCYTES % (AUTO) 35.1 % (13-45); MEAN CORPUSCULAR HEMOGLOBIN 33.1 pg (27.0-33.4); MEAN CORPUSCULAR HGB CONC 35.2 g/dL (32.0-36.0); MEAN CORPUSCULAR VOLUME 94 fl (80-97); MONOCYTES % (AUTO) 15.1 % (3-13); RED CELL DISTRIBUTION WIDTH 12.7 % (11.5-14.0); SEGMENTED NEUTROPHILS % (AUTO) 48.2 % (42-78); TOTAL CELLS COUNTED % (AUTO) 100 %; WHITE BLOOD COUNT 3.5 10^3/uL (4.0-10.5)
[2019-07-25 20:57] LABS: ALBUMIN 4.7 g/dL (3.5-5.0); ALKALINE PHOSPHATASE 49 U/L (38-126); ANION GAP 7 (5-19); ASPARTATE AMINO TRANSFERASE 21 U/L (14-36); BILIRUBIN,TOTAL 0.3 mg/dL (0.2-1.3); BLOOD UREA NITROGEN 10 mg/dL (7-20); CALCIUM 9.6 mg/dL (8.4-10.2); CARBON DIOXIDE 29 mmol/L (22-30); CHLORIDE 101 mmol/L (98-107); GLUCOSE 106 mg/dL (75-110); POTASSIUM 4.1 mmol/L (3.6-5.0); TOTAL PROTEIN 8.1 g/dL (6.3-8.2)
[2019-07-25 21:13] LABS: PLATELET COUNT 96 10^3/uL (150-450)
--- NOTE | 2019-07-25 21:36 | ER Document Report ---
ED GI/ - General Chief Complaint: Urinary Problem Stated Complaint: SIDE PAINS AND NAUSEA 3 WKS PREG Time Seen by Provider: 07/25/19 20:15 Primary Care Provider: LANIE OWENS [Primary Care Provider] - Follow up as needed Notes: RADHA HPI: 33-year-old female who believes she is approximately 3 weeks presenting for nausea vomiting over the last 3 to 4 days with some right pelvic pain and vaginal discomfort. Reports discomfort with urination over the last 3 to 4 days as well. States she has seen some white flecks in the urine, denies vaginal discharge or bleeding. Patient is on fertility treatments and only found out that she was today. Last menstrual cycle was June 30. 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 She has no cough or shortness of breath. She has otherwise not been around other individuals since the COVID test was negative TRAVEL OUTSIDE OF THE [place] IN LAST 30 DAYS: No - Related Data Allergies/Adverse Reactions: No Known Allergies Allergy (Verified 12/10/17 17:23) Home Medications: Progesterone Past Medical History - General Information source: Patient - Social History Smoking Status: Never Smoker Frequency of alcohol use: None Drug Abuse: None Family History: Reviewed & Not Pertinent Patient has suicidal ideation: No Patient has homicidal ideation: No - Medical History Medical History: Negative Renal/ Medical History: Denies: Hx Peritoneal Dialysis Past Surgical History: Reports: Hx Dilation and Curettage, Hx Gynecologic Surgery - D&C 2010, Hx Oral Surgery - Immunizations Immunizations up to date: No Hx Diphtheria, Pertussis, Tetanus Vaccination: No Review of Systems - Review of Systems Gastrointestinal: See HPI Genitourinary: See HPI -: Yes All other systems reviewed and negative Physical Exam - Vital signs Vitals: Temp Pulse Resp BP Pulse Ox 98.9 F 97 16 131/83 H 95 07/25/19 20:01 07/25/19 20:01 07/25/19 20:01 07/25/19 20:01 07/25/19 20:01 - Notes Notes: PHYSICAL EXAMINATION: GENERAL: Well-appearing, well-nourished and in no acute distress. HEAD: Atraumatic, normocephalic. EYES: Pupils equal round and reactive to light, extraocular movements intact, conjunctiva are normal. ENT: Nares patent, oropharynx clear without exudates. Moist mucous membranes. NECK: Normal range of motion, supple without lymphadenopathy LUNGS: Breath sounds clear to auscultation bilaterally and equal. No wheezes rales or rhonchi. HEART: Regular rate and rhythm without murmurs ABDOMEN: Soft, nontender, nondistended abdomen. No guarding, no rebound. No masses appreciated. Female : deferred Musculoskeletal: Normal range of motion, no pitting or edema. No cyanosis. NEUROLOGICAL: Cranial nerves grossly intact. Normal speech, normal gait. Normal sensory, motor exams PSYCH: Normal mood, normal affect. SKIN: Warm, Dry, normal turgor, no rashes or lesions noted. Course - Re-evaluation Re-evalutation: Patient appears well, nontoxic. She reports her pain is gone. Serum hCG here today is negative. Transvaginal ultrasound also unremarkable. She did see her infertility specialist today and found out she was however it may be very early. She estimates 3 to 4 weeks . She will have close follow-up with her infertility specialist. - Vital Signs Vital signs: Temp Pulse Resp BP Pulse Ox 98.2 F 81 18 114/84 100 07/25/19 23:34 07/25/19 23:34 07/25/19 23:34 07/25/19 23:34 07/25/19 23:34 - Laboratory Result Diagrams: 07/25/19 20:25 07/25/19 20:25 Laboratory results interpreted by me: 07/25/19 07/25/19 07/25/19 20:25 20:25 20:25 WBC 3.5 L Plt Count 96 L [place] % (Auto) 15.1 H Sodium 136.7 L Urine Urobilinogen 4.0 H Discharge - Discharge Clinical Impression: Abdominal pain Qualifiers: Abdominal location: unspecified location Qualified Code(s): R10.9 - Unspecified abdominal pain Condition: Stable Disposition: HOME, SELF-CARE Additional Instructions: You have been seen in the Emergency Department (ED) for abdominal pain. Your evaluation did not identify a clear cause of your symptoms but was generally reassuring. Please follow up with your doctor as soon as possible regarding today's emergent visit and the symptoms that are bothering you. Return to the ED if your abdominal pain worsens or fails to improve, you develop bloody vomiting, bloody diarrhea, you are unable to tolerate fluids due to vomiting, fever greater than 101, or other symptoms that concern you. Follow-up with your infertility specialist, call them tomorrow. Referrals: LOCALMD,NO [Primary Care Provider] - Follow up as needed
--- NOTE | 2019-07-25 22:18 | RADIOLOGY REPORT (SQ) ---
EXAM DESCRIPTION: US PELVIS TRANSVAGINAL COMPLETED DATE/TME: 07/25/2019 20:59 CLINICAL HISTORY: 33 years, Female, RLQ pain, pt reports 3 weeks COMPARISON: Prior study from 12/10/2017 TECHNIQUE: Axial 2-D grayscale images of the pelvis were acquired. Doppler was utilized. LIMITATIONS: Limited exam secondary to patient tolerance and bowel gas. FINDINGS: Uterus measures 8.2 x 4.7 x 5.2 cm in size. Cervix is closed, measuring 3.1 cm in length. Endometrial stripe thickness measures 1 cm. No intrauterine is identified. Right ovary was not visualized. Left ovary measures 3.6 x 2.2 x 2.3 cm in size. It demonstrates a normal-appearing follicle as well as low resistance arterial waveforms/venous flow. No significant free fluid is identified within the imaged pelvis. IMPRESSION: Limited study, as above. No definite intrauterine is identified. Given the provided history of , correlation with serial beta hCG levels is suggested as well as possible follow-up pelvic ultrasound as indicated. Nonvisualization of the right ovary. copyright 2010 [employer]- All Rights Reserved
[2019-07-25 23:34] VITALS: BP 114/84
== END 2019-07-25 23:20 | disposition home or self-care (01) ==
LOC: ER 19:57
DX: R10.2 Pelvic and perineal pain (principal); R11.2 Nausea with vomiting, unspecified; Z79.899 Other long term (current) drug therapy
CPT/HCPCS: 99284; 96360; 96361; 86900; 86901; 36415; 84702; 85025; 80053; 81001; 76830; 93976; J7030